=== PATIENT | male | born 1985 | race Caucasian/White ===

== ENCOUNTER 2019-04-19 09:19 | Outpatient (CLI) | payer BC, SELFPAY ==
--- NOTE | 2019-04-19 09:25 | XR_ITS ---
WS: [id number] LATERAL LUMBAR SPINE: 3 view. Lateral radiographs are performed in upright neutral, flexion and extension to the patient's toleranc e. HISTORY: Low back pain COMPARISON: 01/31/2019 Slight increase in lumbar lordosis. Slight retrolisthesis of L5 by 2.7 mm on neutral imaging. Slight increased to 3.2 mm during extension. Facet joint arthropathy is moderate at L5-S1. No fractures. XR/XR lumbar spine f/e only 44310 IMPRESSION: Slight retrolisthesis of L5 without instability.
== END 2019-04-19 09:20 | disposition home or self-care (01) ==
LOC: WPI 09:25
PROVIDERS: Family Provider Nurse Practitioner; PCP Nurse Practitioner; Referring Provider Nurse Practitioner; Visit Provider Licensed Practical Nurse
DX: M54.5 Low back pain (principal)
CPT/HCPCS: 72120

== ENCOUNTER 2019-04-21 13:39 | Outpatient (RCR) | payer BC, SELFPAY | END 2019-05-12 23:59 | disposition home or self-care (01) | LOC: SPT 13:39 | PROVIDERS: Family Provider Nurse Practitioner; PCP Nurse Practitioner; Referring Provider Licensed Practical Nurse; Visit Provider Licensed Practical Nurse | DX: M51.17 Intervertebral disc disorders with radiculopathy, lumbosacral region (principal) | CPT/HCPCS: 97110; 97161; 97530 ==

== ENCOUNTER → 2019-05-17 12:39 | Outpatient (BNVA) | payer BC, SELFPAY | PROVIDERS: Family Provider Nurse Practitioner; PCP Nurse Practitioner; Visit Provider Anesthesiology Pain Medicine | DX: M51.17 Intervertebral disc disorders with radiculopathy, lumbosacral region (principal); R93.7 Abnormal findings on diagnostic imaging of other parts of musculoskeletal system; Z79.891 Long term (current) use of opiate analgesic | CPT/HCPCS: 62323; 77003; 99999; J1040; J2001; J3490 ==

== ENCOUNTER 2019-06-22 08:58 | Observation (INO) | payer BC, SELFPAY ==
[2019-06-21 13:52] VITALS: BMI 26.7
[2019-06-22] VITALS (16 sets, daily range): BP systolic 124–164; BP diastolic 69–95; PULSE 81–114; RESP 14–22; TEMP 36.6–36.9; O2SAT 94–100
--- NOTE | 2019-06-22 06:35 | ANES.PREANE2 ---
Pre-Anesthetic Assessment Pre-Anesthetic Assessment: Height/Weight: Height 1.7 m Weight 77.564 kg Preop Diagnosis: Lumbar disc displacement with radiculopathy Proposed Procedure: Operation Date: 06/22/19 07:00 Proposed Procedures p Hemilaminotomy Foraminotomy Discectomy 1 right L5-S1(Right) - Fermin Pena MD Familial anesthetic complications: None Was Beta Chucky taken within 24 hours: N/A Last intake: Intake Last Liquid Date 06/22/19 Last Liquid Time 20:00 Last Solid Date 06/22/19 Last Solid Time 20:00 Social: Social History: No alcohol and No tobacco Comment: took tylenol 500 mg Exam: Pre-Anes Outpt Exam: alert, oriented x 3, clear to auscultation bilaterally and regular rate & rhythm Airway: Cervical ROM: WNL MP: 1 Additional comments: missing Pulmonary: Pulmonary: None reported CV/HEM: CV/HEM: None reported : : None reported Hepatic: Hepatic: None reported GI: GI: PUD Comments: active (present for 6 months) Metabolic: Metabolic: None reported Musc/skel: Musc/skel: Lower Back Pain Neuropsych: Neuropsych: Neuropathy Comments: R sciatica Anesthetic Plan: ASA status: 1 Anesthesia: General Risk of > 500 ml blood loss (7ml/kg in children): No PFSH Anesthesia PFSH: Medical History (Updated 06/07/19 @ 16:02 by Fermin Pena MD) Intervertebral disc disorder with radiculopathy of lumbosacral region Intervertebral disc disorders with radiculopathy, lumbar region Surgical History (Updated 06/21/19 @ 14:02 by Anh Blanco RN) No history of previous surgery Social History Smoking and tobacco status: never smoked Alcohol intake: current Lives independently: Yes Household members: spouse Marital status: service: No Current occupational status: employed Current occupation: [employer] History of recent travel: No Data Anesthesia Cardiac Studies: No Data to Display
[2019-06-22] MEDS: sodium chloride 0.9% 1,000 ML 30 ML IV (06:51)
--- NOTE | 2019-06-22 06:52 | W.PM.OPSUD ---
Surgery/Procedure H&P Update DATE OF PROCEDURE: June 22, 2019 DATE H&P PERFORMED: 06/19/19 H&P UPDATE INFORMATION: I have reviewed H&P completed within last 30 days, No changes to prior documentation and H&P to be scanned into chart PREOP DIAGNOSIS: Lumbar disc displacement with radiculopathy PRIMARY INDICATION FOR PROCEDURE: Pain PLANNED PROCEDURE: Operation Date: 06/22/19 07:00 Proposed Procedures Hemilaminotomy/Foraminotomy/Discectomy, right L5-S1 - Fermin Pena MD
--- NOTE | 2019-06-22 07:05 | PM.OP2 ---
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
--- NOTE | 2019-06-22 07:29 | XR_ITS ---
WS: [id number] Lumbar spine, portable lateral in the OR, 06/22/2019 Clinical Data: SURGERY Comparison: Lumbar spine, 04/19/2019 Findings: There is a needle in the subcutaneous tissues of back with the tip directed at the L5-S1 disc level. XR/XR lumbar spine 1V 56846 Impression: Localization of L5-S1 disc.
--- NOTE | 2019-06-22 07:45 | XR_ITS ---
WS: [id number] Lumbar spine lateral portable in the OR, 06/22/2019, 0747 hours. Clinical Data: SURGERY Comparison: Lateral lumbar spine, 06/22/2019, 0719 hours. Findings: There is a radiopaque probe whose tip is at the level of the L5-S1 disc. XR/XR lumbar spine 1V port [id number] Impression: Localization of L5-S1 disc.
[2019-06-22] MEDS: thrombin 5,000 unit SDV 5000 UNIT XX (07:56)
--- NOTE | 2019-06-22 08:03 | SUR.PREOP ---
Family Notified Of Patient's Status Via Phone.
--- NOTE | 2019-06-22 08:13 | P.DS_ITS ---
Discharge Providers Date of Admission: 06/22/19 08:58 Date of Discharge: June 22, 2019 Attending Provider at Admission: Fermin Pena MD Attending Provider at Discharge: Fermin Pena MD Primary Care Provider: DORINDA Silva Diagnoses at Discharge Discharge Diagnosis (1) Intervertebral disc disorder with radiculopathy of lumbosacral region: Status: Chronic Reason for Visit Reason for Visit: Reason For Visit: Intervertebral disc disorder with radiculopahty of Brief History: The patient is a 33-year-old male with symptomatic, radiographically confirmed lumbar disc displacement. Imaging studies demonstrated dominant right-sided impingement at L5-S1 related to an extruded disc fragment. Symptoms primarily involved the right lower extremity. Conservative treatment measures failed to provide adequate lasting symptom relief. After review of the diagnostic and treatment options with the risks/potential benefits/rationale for each, the patient requested to proceed with surgical intervention to address the intractable pain and associated activity limitations. Hospital Course Hospital Course: The patient underwent right L5-S1 hemilaminotomy/discectomy/foraminotomy on 06/22/2019. He tolerated the procedure well, and noted improvement in preoperative symptoms following surgery. He experienced transient postoperative dizziness that gradually resolved. He completed preoperative and postoperative intravenous antibiotic doses, and the physical therapy postoperative spine protocol. He was ambulatory, voiding, and tolerating regular diet prior to discharge home on the afternoon of the date of surgery. Physical Exam Const: COMMON NORMALS: no apparent distress GENERAL APPEARANCE: cooperative and comfortable Neck/C-Spine: COMMON NORMALS: supple and no JVD Resp: COMMON NORMALS: normal respiratory effort EFFORT & INSPECTION: Yes able to speak in complete sentences, No tachypneic and No respiratory distress Cardio: COMMON NORMALS: no JVD Extremity: COMMON NORMALS: no clubbing, cyanosis or edema Neuro: GAIT: Yes normal gait MOTOR EXAM: strength 5/5 throughout (Bilateral lower extremities) Psych: COMMON NORMALS: mental status grossly normal, thought process normal and speech normal APPEARANCE: Yes grossly normal ATTITUDE: Yes calm and Yes engaged ACTIVITY/MOTOR BEHAVIOR: Yes appropriate eye contact SPEECH: Yes normal speech MOOD & AFFECT: Yes euthymic mood THOUGHT PROCESS: normal thought process ATTENTION/CONCENTRATION: Yes attention grossly intact INSIGHT: insight good JUDGEMENT: judgment good Skin: WOUNDS: Yes surgical site (Lumbar surgical site dressing clean/dry/intact.) Discharge Data Data Completed and Pending: Completed Studies During Hospitalization Category Date Time Status XR lumbar spine 1 view portable [XR lumbar spine 1V Exams 06/22/19 07:45 Completed port [id number]] Routi ne XR lumbar spine 1 V [id number] Routine Exams 06/22/19 07:29 Completed Pathology: Surgic al [PTH] Routine Pth 06/22/19 09:09 Completed Procedures Performed: Right L5-S1 hemilaminotomy/discectomy/foraminotomy. Intravenous antibiotics. Physical therapy. Vitals: Last Vital Signs Temp 98.1 F 06/22/19 17:15 Pulse 114 H 06/22/19 17:15 Resp 17 06/22/19 17:15 BP 150/95 06/22/19 17:15 Pulse Ox 95 06/22/19 09:35 Discharge Plan Discharge Patient Disposition: Home, Self-Care Condition: Stable Prescriptions: New hydrocodone-acetaminophen 5-325 mg Tablet 1 - 2 tab PO Q4H PRN (Reason: Moderate To Severe Pain) Qty: 30 RF: 0 Continued ibuprofen 200 mg capsule 800 mg PO Q4H PRN (Reason: Pain) RF: 0 acetaminophen [Tylenol Extra Strength] 500 mg tablet 1,000 mg PO Q6H PRN (Reason: Pain) RF: 0 Discharge Orders: Discharge Order (Routine); Ordered 06/22/19 Ordered By: Fermin Pena Referrals: Fermin Pena MD [Physician] - 2 weeks (July 05 at 8:30am) Discharge Diet: Regular Discharge Activity: Limit activity as instructed Patient Instructions: Wound Infection (GEN), Pain Management After Surgery (GEN) Activity Restrictions/Additional Instructions: Activity - No driving until office followup visit - No lifting/pushing/pulling over 10 pounds - Avoid twisting or bending - Walking is encouraged - Home exercise per physical therapist - You may engage in sexual intercourse at any time as long as it is comfortable for you - Check with your doctor before returning to work. Notify your doctor if you develop: - temperature of 101.5 degrees F. or higher - redness or swelling of the incision - Foul drainage - increasing pain - increasing numbness or tingling in the arms or legs - New or increasing problems with vision, balance, memory, speaking, nausea or vomiting Hygiene: - Showering is okay - No tub baths or soaking Other: Remove outer bandage 3 days after surgery. If you have paper strips, leave in place until they fall off on their own. If you have stitches, keep your incision dry until the stitches are removed. Your doctor's office is available to answer any questions from 7 AM to 5:00 PM, Wednesday through at [phone]. After hours, go to the emergency room at [facility] or call 911 for assistance. 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
[2019-06-22] MEDS: fentaNYL 50 mcg/mL INJ 2mL IVP ×2 (09:19→09:24)
[2019-06-22] MEDS: HYDROcodone-acetaminophen 5-325 mg Tablet PO ×2 (10:22→15:42)
[2019-06-22] MEDS: lactated ringers 1,000 ML 90 ML IV (10:22)
[2019-06-22] MEDS: ketorolac 30 mg/mL INJ IVP (10:23)
[2019-06-22] MEDS: docusate sodium 100 mg Capsule PO (10:23)
--- NOTE | 2019-06-22 16:45 | P.OP_ITS ---
Operative Report Date of procedure: June 22, 2019 Pre-op Diagnosis: Lumbar disc displacement with radiculopathy Post-op diagnosis: same Procedure Done: Right L5-S1 hemilaminotomy/discectomy/foraminotomy. Specimens removed/disposition: L5-S1 disc to Pathology Pathology: disc fragments Surgeon: Fermin Pena Anesthesia: General Estimated blood loss (mL): 10 IV fluids (mL): 600 Complications: none Condition: stable Disposition: PACU Brief History: The patient is a 33-year-old male with symptomatic, radi ographically confirmed lumbar disc displacement. Imaging studies demonstrated dominant right-sided impingement at L5-S1 related to an extruded disc fragment. Symptoms primarily involved the right lower extremity. Conservative treatment measures failed to provide adequate lasting symptom relief. After review of the diagnostic and treatment options with the risks/potential benefits/rationale for each, the patient requested to proceed with surgical intervention to address the intractable pain and associated activity limitations. Procedure: After routine preoperative evaluation and informed consent were obtained, the patient was taken to the Operating Room and placed under general endotracheal anesthesia. He was rotated onto the Operating Room table in the modified knee-chest position with the aid of the [place] spine frame. The lumbosacral area was prepared with hair clippers. A proposed midline skin incision was marked with a sterile skin marker. Intraoperative radiography was used for localization purposes. The lumbosacral area was scrubbed with Betadine and prepped with DuraPrep. Sterile towels and drapes were applied, and an [place] surgical barrier was placed. The proposed incision site was infiltrated with 1% Xylocaine with Epinephrine. A skin incision was made and carried down into the subcutaneous tissues. The lumbodorsal fascia was identified and divided in the midline. A right-sided subperiosteal dissection was carried down along the lamina of L5 and S1. Deep self-retaining retractors were placed. A limited laminotomy was fashioned at L5-S1 using Leksell and Kerrison rongeurs. Ligamentum flavum was resected at the base of the laminotomy site. Intraoperative radiography verified the desired surgical level. The ligament was undercut across the midline and into the lateral recess. Limited resection of the medial aspect of the facet joint was performed to further the decompression. The thecal sac was retracted with the nerve root retractor. Retraction of the neural elements allowed disc herniation to be addressed with various curettes and pituitary rongeurs. Inferiorly extruded disc fragments were identified and removed. At the completion of the discectomy, there was no evidence of residual neural impingement within the central canal, lateral recess or neuroforamina at the operative site. The incision was copiously irrigated with sterile saline and antibiotic irrigation. Hemostasis was ensured with the bipolar electrocautery. A thin layer of Surgi-Chi hemostatic matrix was placed over the exposed dura prior to wound closure. Closure consisted of 2-0 Vicryl Plus simple interrupted sutures in the lumbodorsal fascia, superficial fascia, and deep dermis as separate layers. Final skin closure was performed with 3-0 Vicryl Plus in a running subcuticular pattern. Steri-Strips were applied, and a sterile dressing was placed. The patient was then rotated onto the Recovery Room cart in the supine position. He was extubated without incident. The patient tolerated the procedure well. All sponge, needle, and instrument counts were correct at the completion of the procedure.
== END 2019-06-22 17:15 | disposition home or self-care (01) ==
LOC: OBGYN 08:59
PROVIDERS: Admitting Provider Specialist; Family Provider Nurse Practitioner; PCP Nurse Practitioner; Visit Provider Specialist
PROC: (CPT 22899; principal; 2019-06-22 07:00)
DX: M51.17 Intervertebral disc disorders with radiculopathy, lumbosacral region (principal)
CPT/HCPCS: 63030; 12345; 72020; 88304; 96375; 97110; 97116; 97161; G0378; J0690; J1100; J1885; J2001; J2405; J2704; J3010; J3490; J7030

== ENCOUNTER 2019-09-12 09:20 | Outpatient (CLI) | payer BC, SELFPAY ==
--- NOTE | 2019-09-12 09:32 | XR_ITS ---
WS: [id number] LATERAL LUMBAR SPINE: 3 view. Lateral radiographs are performed in upright neutral, flexion and extension to the patient's toleranc e. HISTORY: lumbar pain COMPARISON: 06/22/2019 Mild straightening of the normal lumbar lordosis. No fractures. There is facet joint arthritis at L5 -S1. 2 mm retrolisthesis of L4 does not change with flexion or extension. XR/XR lumbar spine f/e only [id number] IMPRESSION: Mild facet joint arthritis and disc space narrowing at L5-S1. No lumbar spine i nstability.
--- NOTE | 2019-09-12 09:32 | MR_ITS ---
WS: [id number] MRI LUMBAR SPINE WITH AND WITHOUT CONTRAST. HISTORY: Lumbar pain, post lumbar discectomy. Surgery June 22, 2019. COMPARISON: 02/14/2019 TECHNIQUE: Sagittal and axial multisequence imaging is submitted. Sagittal and axial T1 fat sat seque nces post-ProHance 17 cc IV. Straightening of the normal lumbar lordosis. No acute fractures. There is a very small amount of incr eased T2 signal in the L5 and S1 vertebral bodies which can be due to recent postoperative change. Disc desiccation and mild narrowing from L3-4 to L5-S1. Conus terminates normally at L1-2 disc level. L1-L2: No significant stenosis. L2-L3: Negative. No disc protrusion or stenosis. L3-L4: Mild annular disc bulging and a broad-based central protrusion. There is a small annular fissu re. Very mild narrowing of the central canal and subarticular recesses. No significant stenosis. L4-L5: Diffuse annular disc bulging with a moderate size central disc protrusion. Mild encroachment u siha the ventral thecal sac. There is very mild encroachment upon the L5 nerve roots bilaterally in th e subarticular recesses which is similar to the prior study. There is increase fluid in the facet maritza nts bilaterally. Mild bilateral foraminal stenosis unchanged. L5-S1: Diffuse annular disc bulging. Previously described disc protrusion abutting the RIGHT S1 nerve root is no longer present. Annular disc bulging extending into the foramen is again identified. Mode rate LEFT and mild RIGHT foraminal stenosis. Similar to the prior study. Postcontrast imaging is negative for discitis or osteomyelitis. There is enhancement at the postsurgi deric site surrounding the thecal sac at the L5-S1 level and along the spinous process. Laminectomy def ect on the RIGHT. There is no abscess or focal collection. No recurrent disc herniation. MR/MR lumbar spine wo/w con [id number] IMPRESSION: 1. Status post discectomy at L5-S1 with RIGHT hemilaminectomy defect. 2. Postsurgical changes associated with the RIGHT L5-S1 hemilaminectomy defect all appear appropriate from the recent postoperative procedure. There is no ab scess. No recurrent disc herniation. 3. Continued moderate LEFT and mild RIGHT foraminal stenosis. 4. No discitis or osteomyelitis. 5. Mild central and subarticular recess stenosis at L3-4 and L4-5.
== END 2019-09-12 09:21 | disposition home or self-care (01) ==
LOC: RADWPI 09:22
PROVIDERS: Family Provider Nurse Practitioner; PCP Nurse Practitioner; Visit Provider Specialist
DX: Z98.890 Other specified postprocedural states (principal); M54.5 Low back pain; M48.061 Spinal stenosis, lumbar region without neurogenic claudication; M13.88 Other specified arthritis, other site
CPT/HCPCS: 72120; 72158; A9579